=== PATIENT | female | born 1960 | race Caucasian/White ===

== ENCOUNTER 2019-03-08 06:24 | Day surgery (SDC) | payer OTHER ==
[2019-03-01 12:14] LABS: CLARITY,URINE CLEAR (Clear); COLOR,URINE STRAW (Yellow); GLUCOSE, URINE NEGATIVE (Neg); KETONES,URINE NEGATIVE (Neg); LEUKOCYTE ESTERASE ,URINE NEGATIVE (Neg); NITRITES, URINE NEGATIVE (Neg); OCCULT BLOOD,URINE NEGATIVE (Neg); PROTEIN,URINE NEGATIVE (Neg); UROBILINOGEN,URINE 0.2 E.U/dL (0.2-1.0)
[2019-03-01 12:22] LABS: UA COLLECTION TYPE CLN CATCH MIDSTREAM
[2019-03-01 12:28] LABS: ALBUMIN 4.1 G/DL (3.4-5.0); ALBUMIN/GLOBULIN RATIO 1.1 (1.1-1.5); ALKALINE PHOSPHATASE 95 IU/L (46-116); BASOPHILS # (AUTO) 0.1 X10'3 (0-0.2); BASOPHILS % (AUTO) 0.7 % (0-1); BLOOD UREA NITROGEN 12 MG/DL (7-18); BUN/CREATININE RATIO 17.1 (6.6-38.0); CALCIUM 9.4 MG/DL (8.5-10.1); CHLORIDE 104 MMOL/L (99-107); EOSINOPHILS # (AUTO) 0.1 X10'3 (0-0.9); LYMPHOCYTES # (AUTO) 1.4 X10'3 (1.1-4.8); LYMPHOCYTES % (AUTO) 18.6 % (21-51); MEAN CORPUSCULAR HGB CONC 33.1 g/dL (33.0-36.5); MEAN CORPUSCULAR VOLUME 87.6 FL (78-98); MEAN PLATELET VOLUME 7.5 FL (7.4-10.4); MONOCYTES # (AUTO) 0.4 X10'3 (0-0.9); NEUTROPHILS # (AUTO) 5.4 X10'3 (1.8-7.7); NEUTROPHILS % (AUTO) 73.7 % (42-75); PRE OP ALT 21 U/L (30-65); PRE OP ANION GAP 7 (8-16); PRE OP AST 23 U/L (10-37); PRE OP BILIRUB, TOTAL 0.3 MG/DL (0.0-1.0); PRE OP GLUCOSE 117 MG/DL (70-104); PRE OP HEMATOCRIT 40.6 % (35.0-45.0); PRE OP HEMOGLOBIN 13.4 g/dL (12.0-16.0); PRE OP PLATELET COUNT 277 X10'3 (140-440); PRE OP POTASSIUM 3.9 MMOL/L (3.4-5.1); PRE OP SODIUM 140 MMOL/L (135-145); RED BLOOD COUNT 4.63 X10'6 (4.20-5.60); TOTAL CARBON DIOXIDE 28.9 MMOL/L (24-32); TOTAL PROTEIN 7.9 G/DL (6.4-8.2); eGFR 86 ML/MIN
[~2019-03-08] VITALS: Ht 182.9 cm; Wt 100.7 kg
[2019-03-08] VITALS (10 sets, daily range): BP systolic 117–140; BP diastolic 69–87
[~2019-03-08 06:24] MED LIST: HYDR-3973 PO; SYN0.088T PO; ZOLP5TAB8 PO
[2019-03-08] MEDS ORDERED: famotidine 20mg tablet PO ONE (07:00)
[2019-03-08] MEDS ORDERED: scopolamine 1.5mg patch.TD72 TD ONE (07:00)
[2019-03-08] MEDS ORDERED: ceFAZolin 2gm in dextrose, iso 100 ML IV ONE (07:00)
[2019-03-08] MEDS ORDERED: ringers solution, lacted 1,000 ML IV SCH ×2 (07:00→09:07)
[2019-03-08] MEDS ORDERED: LIDOcaine 1% 30ml preserv. free vial ONE (07:47)
[2019-03-08] MEDS ORDERED: sevoflurane 250ml liquid IH ONE (08:24)
[2019-03-08] MEDS ORDERED: fentaNYL/PF 50MCG/1 ML 2ML syringe ONE ×2 (08:28→08:50)
[2019-03-08] MEDS ORDERED: midazolam 2 mg/2 ml injection ONE (08:28)
[2019-03-08] MEDS ORDERED: LIDOcaine 2% (20mg/ml) 5ml vial ONE (08:56)
[2019-03-08] MEDS ORDERED: ondansetron/PF 4mg/2ml inj ONE (08:56)
[2019-03-08] MEDS ORDERED: ePHEDrine 50MG/ML INJ. ONE (08:56)
[2019-03-08] MEDS ORDERED: dexamethasone sod phosphate 4mg/ml inj. ONE (08:56)
[2019-03-08] MEDS ORDERED: propofol inj 20 ML IV ONE (08:56)
[2019-03-08] MEDS ORDERED: meperidine/PF 25mg/ml syringe IV PRN ×3 (09:10)
[2019-03-08] MEDS ORDERED: proCHLORperazine 10 MG/2 ml inj IV PRN (09:10)
[2019-03-08] MEDS ORDERED: ondansetron/PF 4mg/2ml inj IV PRN (09:10)
[2019-03-08] MEDS ORDERED: morphine 4 MG/ML inj SYRINge IV PRN ×2 (09:10)
--- NOTE | 2019-03-08 09:27 | NUR ---
Received from OR via [facility] , accompanied by Anesthesiologist BOAZ and report given by Anesthesiolgist. RIGHT CHEST WALL DRESSING IS CDI. 20G PIV IN LEFT UE RUNNING LR AT 100. VSS Addendum: 03/08/19 at 0943 by Blaze Goodson RN, RN Amended: Links added.
[2019-03-08] MEDS ORDERED: ketorolac trometh. 30mg/ml inj. IV ONE (10:25)
--- NOTE | 2019-03-08 10:47 | NUR ---
ALL DC CRITERIA HAS BEEN MET. IV TAKEN OUT WITHOUT COMPLICATIONS. ALL INSTRUCTIONS COVERED AND ALL QUESTIONS ANSWERED. DRESSINGS CDI. OUT VIA WHEELCHAIR TO PERSONAL VEHICLE WHERE PATIENT WAS SECURED IN AND DRIVEN HOME BY FAMILY. VOIDED, AMBULATED AND DRESSED SELF INDEPENDENTLY. RIGHT CHEST WALL STERI STRIPS INTACT AND CDI. Addendum: 03/08/19 at 1051 by Blaze Cornejo - COY CESPEDES Amended: Links added.
== END 2019-03-08 10:47 | disposition home or self-care (01) ==
LOC: PAS 06:24
PROVIDERS: ATTEND Surgery
DX: D17.1 Benign lipomatous neoplasm of skin and subcutaneous tissue of trunk (principal); Z87.891 Personal history of nicotine dependence; Z72.89 Other problems related to lifestyle; Z88.8 Allergy status to other drugs, medicaments and biological substances; E03.9 Hypothyroidism, unspecified; Z85.828 Personal history of other malignant neoplasm of skin; Z98.890 Other specified postprocedural states; Z90.721 Acquired absence of ovaries, unilateral
CPT/HCPCS: 21931; 36415; 80053; 81003; 82948; 84443; 85025; 93005; J0690; J1100; J1885; J2001; J2175; J2250; J2270; J2405; J2704; J3010; J3490; J7120; A7000